=== PATIENT | male | born 1995 | race Asian ===

== ENCOUNTER 2019-05-06 01:40 | Emergency (ER) | payer OTHER ==
[~2019-05-06] VITALS: Ht 185.4 cm; Wt 133.8 kg
[2019-05-06 02:55] VITALS: BP 145/101; TEMP 97.7
== END 2019-05-06 02:57 | disposition home or self-care (01) ==
LOC: ED 01:40
DX: L05.01 Pilonidal cyst with abscess (principal)
CPT/HCPCS: 87070; 87205; 99283

== ENCOUNTER 2022-10-17 23:49 | Emergency (ER) | payer OTHER ==
[~2022-10-17] VITALS: Ht 185.4 cm; Wt 111.1 kg
[2022-10-18 01:18] LABS: POTASSIUM 4.1 mmol/L (3.6-5.2); SODIUM 127 mmol/L (136-145)
[2022-10-18 01:46] LABS: PLATELET COUNT 243 K/uL (142-355)
[2022-10-18] MEDS ORDERED: LIPITOR40 MG PO (05:18)
[2022-10-18 05:58] VITALS: BP 157/101; TEMP 98.3
[2022-10-19] MEDS ORDERED: METOCLOPRAMIDE H5 MG PO (10:42)
== END 2022-10-18 05:58 | disposition home or self-care (01) ==
LOC: ED 23:49
PROVIDERS: Family Medicine
DX: E11.65 Type 2 diabetes mellitus with hyperglycemia (principal); R10.9 Unspecified abdominal pain; K31.84 Gastroparesis; F17.290 Nicotine dependence, other tobacco product, uncomplicated
CPT/HCPCS: 36415; 80053; 80307; 81000; 82150; 83690; 85027; 87040; 87077; 87185; 87186; 87205; 96361; 96365; 96372; 96375; 96376; 99284; J1170; J1815; J2405; J2543; Q9963